=== PATIENT | male | born 1970 | race Caucasian/White ===

== ENCOUNTER 2024-11-06 09:05 | Emergency (ER) | payer OTHER ==
[2024-11-06 09:14] VITALS: PULSE 71; RESP 18; BMI 24.3
[2024-11-06] MEDS ORDERED: ACETAMINOPHEN INJECTION 100 ML ONE (09:50)
[2024-11-06] MEDS: SODIUM CHLORIDE 0.9% 1000 ML INFUS.BAG IV ONE (09:54)
[2024-11-06] MEDS: ACETAMINOPHEN 1000 MG/100 ML BAG IVPB ONE (09:55)
[2024-11-06 09:56] LABS: HEMATOCRIT 44.3 % (35.4-49); HEMOGLOBIN 15.4 G/dL (11.7-16.9); MCH 31.8 pg (25.7-33.7); MCHC 34.7 g/dl (32.0-35.9); MEAN CELL VOLUME 91.8 fl (80-96); MEAN PLT VOLUME 8.2 fl (7.5-11.1); PLATELET COUNT 249.3 10^3/uL (134-434); RBC 4.83 10^6/uL (4.00-5.60); RDW 13.5 % (11.9-15.9); WHITE BLOOD COUNT 9.1 10^3/uL (4.0-10.8)
[2024-11-06 10:25] LABS: ALBUMIN 4.7 g/dl (3.4-5.0); BILIRUBIN,TOTAL 0.5 mg/dl (0.2-1); CALCIUM 9.7 mg/dl (8.5-10.1); CREATININE 0.7 mg/dl (0.6-1.3); TOT PROT 7.7 g/dl (6.4-8.2)
[2024-11-06 11:57] VITALS: BP 133/89; TEMP 98.1
[2024-11-06 12:23] LABS: HIV INTERPRETATION NEGATIVE (NEGATIVE)
== END 2024-11-06 12:10 | disposition home or self-care (01) ==
LOC: FER 09:05
PROC: 3E033NZ Introduction of Analgesics, Hypnotics, Sedatives into Peripheral Vein, Percutaneous Approach (ICD-10-PCS; principal; 2024-11-06)
DX: R53.1 Weakness (principal); R50.9 Fever, unspecified; R53.81 Other malaise; R42 Dizziness and giddiness; R53.83 Other fatigue; Z20.822 Contact with and (suspected) exposure to COVID-19
CPT/HCPCS: 0241U-QW; 36415; 80053; 82962; 85027; 86803; 87389; 93005; 99284-25; J0131